=== PATIENT | female | born 1965 | race Caucasian/White ===

== ENCOUNTER → 2020-03-30 17:25 | Outpatient (CLI) | payer OTHER, SELFPAY ==
--- NOTE | 2020-03-30 | DI.MG.S_ITS ---
BILATERAL DIGITAL SCREENING MAMMOGRAM 3D/2D WITH CAD: 03/30/2020 CLINICAL: Routine screening. Comparison is made to exams dated: 12/16/2018 mammogram, 11/26/2017 mammogram, and 11/22/2016 mammogram - outside location. The tissue of both breasts is heterogeneously dense. This may lower the sensitivity of mammography. Current study was also evaluated with a Computer Aided Detection (CAD) system. No significant masses, calcifications, or other findings are seen in either breast. There has been no significant interval change. IMPRESSION: NEGATIVE There is no mammographic evidence of malignancy. A 1 year screening mammogram is recommended. This exam was interpreted at Station ID: [id number]. NOTE: For mammograms, a report in lay terms will be sent to the patient. Approximately 15% of breast malignancies will not be visualized mammographically. In the management of a palpable breast mass, a negative mammogram must not discourage biopsy of a clinically suspicious lesion. Electronically Signed By: Darius caban/reagan:03/31/2020 10:05:04 letter sent: Normal Exam ACR BI-RADS Category 1: Negative 3341F
== END ==
PROVIDERS: PCP Registered Nurse Diabetes Educator; Referring Provider Registered Nurse Diabetes Educator; Visit Provider Registered Nurse Diabetes Educator
DX: Z12.31 Encounter for screening mammogram for malignant neoplasm of breast (principal)
CPT/HCPCS: 77063; 77067

== ENCOUNTER → 2021-04-10 10:57 | Outpatient (CLI) | payer OTHER, SELFPAY ==
--- NOTE | 2021-04-10 | DI.MG.S_ITS ---
BILATERAL DIGITAL SCREENING MAMMOGRAM 3D/2D WITH CAD: 04/10/2021 CLINICAL: Routine screening. Family history of breast cancer. Comparison is made to exams dated: 03/30/2020 mammogram - [facility], 12/16/2018 mammogram, and 11/26/2017 mammogram - outside location. The tissue of both breasts is heterogeneously dense. This may lower the sensitivity of mammography. Current study was also evaluated with a Computer Aided Detection (CAD) system. No significant masses, calcifications, or other findings are seen in either breast. There has been no significant interval change. IMPRESSION: NEGATIVE There is no mammographic evidence of malignancy. A 1 year screening mammogram is recommended. This exam was interpreted at Station ID: [id number]. NOTE: For mammograms, a report in lay terms will be sent to the patient. Approximately 15% of breast malignancies will not be visualized mammographically. In the management of a palpable breast mass, a negative mammogram must not discourage biopsy of a clinically suspicious lesion. Electronically Signed By: Darius caban/reagan:04/10/2021 11:31:52 letter sent: Normal Exam ACR BI-RADS Category 1: Negative 3341F
== END ==
PROVIDERS: PCP Student in an Organized Health Care Education/Training Program; Referring Provider Student in an Organized Health Care Education/Training Program; Visit Provider Student in an Organized Health Care Education/Training Program
DX: Z12.31 Encounter for screening mammogram for malignant neoplasm of breast (principal); Z80.3 Family history of malignant neoplasm of breast
CPT/HCPCS: 77063; 77067

== ENCOUNTER → 2021-10-30 13:13 | Outpatient (CLI) | payer OTHER, SELFPAY ==
--- NOTE | 2021-10-30 13:15 | DI.ECHO.S_ITS ---
[place] [facility]---------+ [facility] +---------+ : : [address] : : : : [id number] : : : : Phone: [phone]+ Echocardiogram Report + + :Name: COURTNEY BARBOZA Study Date: 10/30/2021 Height: 64 in : :[facility] ReadingLocation: Weight: 140 lb : : Gender: Female BSA: 1.7 m2 : :: 1965 Age: 56 yrs BP: 117/81 mmHg: :Reason For Study: CARDIAC ARRHYTHMIS : :Ordering Physician: RONAN, : :MARTHA Performed By: Lala Wei : :Referring: MARTHA SR : + + Interpretation Summary The ejection fraction is estimated to be 60-65%. Diastolic function could not be accurately assessed due to unobtainable data. The right ventricle is normal in size and function. The left atrium is mildly dilated. There is mild mitral regurgitation. Unable to estimate PASP. Procedure: A two-dimensional transthoracic echocardiogram with color flow and Doppler was performed. The study quality was technically adequate. There is no prior echocardiogram noted for this patient. The patient was in sinus rhythm with heart rates between 45-60 bpm during the exam. Left Ventricle: The left ventricle is normal in size and wall thickness. The ejection fraction is estimated to be 60-65%. Diastolic function could not be accurately assessed due to unobtainable data. Right Ventricle: The right ventricle is normal in size and function. Atria: The left atrium is mildly dilated. Right atrial size is normal. There is no Doppler evidence for an interatrial shunt. Mitral Valve: There is a flat closure plane of the the mitral valve leaflets. There is mild mitral regurgitation. Aortic Valve: The aortic valve is trileaflet. The aortic valve opens well. There is no aortic valve stenosis. No aortic regurgitation is present. Tricuspid Valve: The tricuspid valve is normal in structure and function. There is a trace or physiologic amount of tricuspid regurgitation. Pulmonic Valve: The pulmonic valve leaflets are thin and pliable; valve motion is normal. There is no pulmonic valvular regurgitation. Great Vessels: The aortic root is normal size. The dimensions of the ascending aorta are normal. The IVC is of normal diameter and collapses greater than 50% with a sniff. This suggests a low right atrial pressure of 3 mm Hg. Pericardium/ Pleura There is no pericardial effusion. There is no pleural effusion. MMode/2D Measurements & Calculations LVIDd: 4.4 cm LVOT diam: 2.3 cm LVIDs: 2.7 cm asc Aorta Diam: 3.2 cm FS: 38.6 % Ao Arch Diam (Prox Trans): 2.5 cm IVSd: 0.61 cm LVPWd: 0.72 cm LV brock. diameter/BSA (cm/m^2): 2.6 LV sys. diameter/BSA (cm/m^2): 1.6 LA A2 area: 21.9 cm2 RA long axis: 4.8 cm LA A4 area: 17.6 cm2 RA area: 15.5 cm2 LA length (vol): 5.2 cm RA vol: 42.5 ml LA vol: 63.3 ml RA : 25.3 ml/m2 LA vol index: 37.7 ml/m2 IVC diam: 1.7 cm RVD1 (basal): 3.6 cm TAPSE: 3.0 cm Doppler Measurements & Calculations Ao V2 max: 136.9 cm/sec LVOT Max Alejandro: 99.7 cm/sec Ao V2 mean: 87.6 cm/sec LV V1 max P.0 mmHg Ao max P.5 mmHg LV V1 VTI: 22.2 cm Ao mean P.6 mmHg MIRANDA(I,D): 2.9 cm2 Ao V2 VTI: 31.3 cm MIRANDA(V,D): 2.9 cm2 sev ratio: 0.71 MIRANDA indexed to BSA (cm^2/m^2): 1.7 MV E max alejandro: 93.4 cm/sec PA V2 max: 85.6 cm/sec MV A max alejandro: 60.2 cm/sec PA V2 mean: 55.9 cm/sec MV E/A: 1.6 PA mean P.4 mmHg Med Peak E' Alejandro: 10.7 cm/sec PA pr(Accel): 19.1 mmHg E/E' med: 8.7 Lat Peak E' Alejandro: 11.7 cm/sec E/E' lat: 8.0 E/e' average: 8.4 MV dec time: 0.18 sec SV(LVOT): 89.8 ml Reading Physician:04:31 PM
== END ==
PROVIDERS: PCP Student in an Organized Health Care Education/Training Program; Referring Provider Internal Medicine Cardiovascular Disease; Visit Provider Internal Medicine Cardiovascular Disease
DX: I34.0 Nonrheumatic mitral (valve) insufficiency (principal); I44.30 Unspecified atrioventricular block
CPT/HCPCS: 93306

== ENCOUNTER → 2022-03-28 11:09 | Outpatient (CLI) | payer OTHER, SELFPAY ==
[2022-03-28 12:42] LABS: BUN Creatinine Ratio 18.6 (6-22); Blood Urea Nitrogen 13 mg/dL (7-17); Calcium 8.7 mg/dL (8.4-10.2); Carbon Dioxide 30 mmol/L (22-32); Chloride 105 mmol/L (98-107); Cholesterol 173 mg/dL (140-199); Estimated Glomerular Filt Rate > 60 mL/min (>60); Glucose 98 mg/dL (70-100); HDL Cholesterol 57 mg/dL (40-60); HEMOLYSIS < 15 (0-50); LDL Cholesterol Calculated 105 mg/dL (<100); Magnesium 2.2 mg/dL (1.6-2.3); Potassium 4.4 mmol/L (3.4-5.1); Sodium 140 mmol/L (137-145); Triglycerides 57 mg/dL (35-150)
[2022-03-28 13:14] LABS: TSH w/ Reflex to FT4 0.26 uIU/mL (0.47-4.68)
[2022-03-28 15:34] LABS: Free T4, Direct Thyroxine 1.14 ng/dL (0.78-2.19)
[2022-03-29 16:41] LABS: Free T3, Triiodothyronine Free 2.69 pg/mL (2.77-5.27)
[2022-03-30 08:35] LABS: Triiodothyronine T3 Total 70 ng/dL (71-180)
== END ==
PROVIDERS: PCP Student in an Organized Health Care Education/Training Program; Referring Provider Nurse Practitioner Acute Care; Visit Provider Nurse Practitioner Acute Care
DX: E78.5 Hyperlipidemia, unspecified (principal)
CPT/HCPCS: 36415; 80048; 80061; 83735; 84439; 84443; 84480; 84481

== ENCOUNTER → 2023-03-28 13:10 | Outpatient (CLI) | payer OTHER, SELFPAY | PROVIDERS: PCP Student in an Organized Health Care Education/Training Program; Visit Provider Nurse Practitioner Family | DX: R30.0 Dysuria (principal) | CPT/HCPCS: 87086 ==

== ENCOUNTER → 2023-05-01 12:40 | Outpatient (CLI) | payer OTHER, SELFPAY | PROVIDERS: PCP Student in an Organized Health Care Education/Training Program; Visit Provider Nurse Practitioner Family | DX: N39.0 Urinary tract infection, site not specified (principal); N89.8 Other specified noninflammatory disorders of vagina | CPT/HCPCS: 87086; 87210 ==

== ENCOUNTER → 2025-06-29 08:33 | Outpatient (CLI) | payer OTHER, SELFPAY ==
--- NOTE | 2025-06-29 08:35 | DI.US.S_ITS ---
MM diagnostic mammo unilat LT, US breast LT limited: 06/29/2025 BI-RADS: 1 CLINICAL: 59-year old female for left diagnostic mammogram and left diagnostic breast ultrasound. The patient presents for additional evaluation of an inconclusive screening mammogram. Tyrer-Cuzick lifetime risk of 8.1%. PRIOR EXAMS 06/01/2025, 04/23/2024, 04/15/2023, 04/10/2021, 03/30/2020, 12/16/2018. MAMMOGRAPHY TECHNIQUE: 2D and 3D (tomosynthesis) digital mammographic views obtained, with additional images as needed for full coverage. Current study was also evaluated with a Computer Aided Detection (CAD) system. ULTRASOUND TECHNIQUE Real-time cowan scale and color doppler imaging of the area of clinical interest was performed with image documentation. TARGETED Left Breast Ultrasound: Real-time ultrasound exam was performed focused to area of clinical and/or imaging concern. DENSITY Left: C. The breast is heterogeneously dense, which may obscure small masses. MAMMOGRAPHY FINDINGS Left (finding-1): Lower Outer Quadrant, Anterior depth: The questionable mass seen on recent screening mammogram did not persist with additional imaging and is consistent with superimposition of normal breast tissue. Left: Correlating with findings on screening mammogram there are benign diffuse punctate calcifications. There is no significant change compared to prior mammograms. ULTRASOUND FINDINGS Left (finding-1): Lower Outer at 5:00, 1 cm from nipple: There is no sonographic abnormality to account for imaging concern on mammography. There is no suspicious sonographic finding. IMPRESSION: Left * No evidence of malignancy. RECOMMENDATIONS Bilateral * Annual screening mammography. COMMENTS: Findings and recommendations were conveyed to the patient during today's evaluation. OVERALL ASSESSMENT CATEGORY BI-RADS-1: Negative. The [employer] recommends annual screening mammography beginning at age 40 for women with average risk of breast cancer. ELECTRONICALLY SIGNED: Anita Montejo M.D. on 06/29/2025 at 11:07:56 AM PT Interpreting Station ID: [id number]
== END ==
LOC: MAMMO 08:34
PROVIDERS: PCP Physician Assistant; Referring Provider Physician Assistant; Visit Provider Physician Assistant
DX: R92.1 Mammographic calcification found on diagnostic imaging of breast (principal); R92.30 Dense breasts, unspecified; R92.332 Mammographic heterogeneous density, left breast
CPT/HCPCS: 76642; 77065; G0279